=== PATIENT | male | born 1995 | race Caucasian/White ===

== ENCOUNTER 2019-04-15 14:23 | Emergency (ER) | payer MEDICAID, SELFPAY ==
[2019-04-15 14:48] VITALS: BP 140/80; PULSE 97; RESP 18; TEMP 36.9; O2SAT 94; BMI 45.0
--- NOTE | 2019-04-15 15:05 | USCV_ITS ---
[facility] Age: 24 Gender: M : 1995 Exam Date: 04/15/2019 16:05 Ordering Phys: Padmini Salinas Technologist: Karina Hein Exam Location: [facility] – [place] Indication: PAIN SWELLING PROCEDURES: Venous duplex imaging was performed in only the right lower extremity. The following venous structures were evaluated: common femoral vein, profunda vein, proximal portion of the greater saphenous vein, superficial femoral vein, and the popliteal vein. In addition, the posterior tibial and peroneal trunk were evaluated. Serial compression, augmentation maneuvers, and spectral Doppler flow evaluation were performed. FINDINGS: Normal 2-D Doppler and augmentation and compressibility throughout the lower extremity venous structures. Additional imaging through the proximal calf veins also reveals no thrombus. Limited evaluation of the greater saphenous vein is patent with no thrombus.. CONCLUSIONS No evidence of right lower extremity DVT. Cyrus Gardner MD (Electronically Signed) Final Date: 15 April 2019 16:33 S
--- NOTE | 2019-04-15 17:55 | ED_ITS ---
HPI - Extremity Problem General: Chief complaint: Extremity Problem,Nontraumatic Stated complaint: possible clot in right leg Time Seen by Provider: 04/15/19 17:50 History of Present Illness: HPI Narrative: Patient presents with right lower extremity swelling times years redness since yesterday. Patient has no other complaints MD Complaint: extremity swelling Onset (ago): day(s) Pain Consistency: constant Location: right and lower extremity Quality: dull Radiation: none Associated symptoms: Deny chest pain, fever(s) or rash Context: history of DVT Review of Systems General: Reports: 10 or more systems reviewed and unremarkable except in HPI and below (Right lower extremity swelling. Redness since yesterday. Patient does have lymphedema.) Const: Denies: fever, chills or body aches Eyes: Denies: change in vision or blurry vision ENMT: Denies: throat pain or nasal congestion Card: Denies: chest pain or shortness of breath on exertion Resp: Denies: shortness of breath, productive cough or non-productive cough GI: Denies: abdominal pain, nausea or vomiting : Denies: difficulty urinating Musc: Denies: extremity pain Skin/Breast: Denies: rash Neuro: Denies: headache Psych: Denies: anxiety or depression Lambert/Lymph: Denies: easy bruising PFSH ED PFSH: Statuses (acute, chronic, etc) shown below reflect problem list status as previously entered and may not be historically accurate Medical History (Updated 04/15/19 @ 18:38 by STEPHIE Ngo) Deep vein thrombophlebitis of right leg (Acute) Diabetes (Acute) Obesity (Acute) Venous insufficiency of both lower extremities (Acute) Social History (Updated 04/15/19 @ 11:07 by STEPHIE Hastings) Smoking and tobacco status: never smoked Second hand smoke exposure: Yes Alcohol intake: never Adopted: No Lives independently: No Highest education level completed: High School Graduate Additional social history: Lives with Mother and Father he does chew tobacco Physical Exam Const: COMMON NORMALS: no apparent distress, average body habitus and oriented x3 HENMT: COMMON NORMALS: normocephalic HEAD & SCALP: normal to inspection and normocephalic FACE & SINUS: normal facial exam Eye: COMMON NORMALS: conjunctivae normal GENERAL EYE: normal appearance of both eyes CONJUNCTIVA: Yes conjunctivae normal Neck/C-Spine: COMMON NORMALS: no JVD Chest: COMMONS NORMALS: inspection of chest normal Resp: COMMON NORMALS: normal respiratory effort and clear to auscultation bilaterally AUSCULTATION: clear to auscultation bilaterally Cardio: COMMON NORMALS: no JVD, regular rate and regular rhythm RATE: regular rate RHYTHM: regular rhythm GI: COMMON NORMALS: normal to inspection, nondistended, normoactive bowel sounds Extremity: COMMON NORMALS: normal to inspection and full ROM RIGHT LOWER EXTREMITY: Yes lower leg (Swelling of the right lower extremity below knee. Open sores that are draining. Erythema to the foot and ankle area. Warm to the touch but not hot. Has full range of motion.) Neuro: COMMON NORMALS: oriented x3 Course Vital Signs: Vital signs: Vital Signs Temperature 98.5 F 04/15/19 14:48 Pulse Rate 79 04/15/19 18:23 Respiratory Rate 18 04/15/19 14:48 Blood Pressure 128/68 04/15/19 18:23 Pulse Oximetry 95 04/15/19 18:23 MDM - Extremity (Nontraumatic) Lab Data: Labs: Lab Results 04/15/19 Range/Units 18:07 WBC 10.6 H (4.0-10.0) 10^3/ uL RBC 4.78 (4.1-5.3) 10^6/u L Hgb 11.6 L (11.7-16.6) g/dL Hct 38.7 L (42.0-52.0) % MCV 81.0 (80-94) fL MCH 24.3 L (28.0-34.0) pg MCHC 30.0 (30.0-36.0) g/dL RDW 15.8 H (12.1-15.1) % Plt Count 293 (130-400) 10^3/c mm MPV 9.0 (7.4-10.4) fL Neut % (Auto) 70.6 % Lymph % (Auto) 22.9 % [place] % (Auto) 3.9 % Eos % (Auto) 1.8 % Baso % (Auto) 0.3 % Neut # (Auto) 7.5 (1.8-7.7) 10^3/u L Lymph # (Auto) 2.4 (0.8-4.8) 10^3/u L [place] # (Auto) 0.4 (0.2-0.9) 10^3/u L Eos # (Auto) 0.2 (0.0-0.8) 10^3/u L Baso # (Auto) 0.0 (0.0-0.1) 10^3/u L Nucleated RBC % (a uto) 0 % Nucleated RBCs # 0.0 /100WBC Discharge Plan Discharge Clinical Impression: Wound cellulitis Condition: Stable Prescriptions: No Action Lantus Solostar U-100 Insulin 100 unit/mL (3 mL) insulin pen 40 unit SUBCUT ONCE RF: 0 Novolog Flexpen U-100 Insulin 100 unit/mL (3 mL) insulin pen 20 unit SUBCUT TID RF: 0 warfarin 5 mg tablet 5 mg PO ONCE RF: 0 warfarin 1 mg tablet 1 mg PO ONCE RF: 0 Referrals: Nicole Hernandez FNP [Primary Care Provider] - Discharge Diet: Usual diet Discharge Activity: Increase activity as tolerated Patient Instructions: Cellulitis (ED) Activity Restrictions/Additional Instructions: Follow-up with medical provider as directed. Take medications as prescribed. Return to the ER are your medical provider if condition worsens. Read and understand discharge instructions. Coding Level of Care Code ED Forging Press Setter Up for Milly Carl Exam Problem Focused
[2019-04-15 18:18] LABS: Basophils % 0.3 %; Eosinophils # 0.2 10^3/uL (0.0-0.8); Eosinophils % 1.8 %; Hematocrit 38.7 % (42.0-52.0); Hemoglobin 11.6 g/dL (11.7-16.6); Lymphocytes # 2.4 10^3/uL (0.8-4.8); Lymphocytes % 22.9 %; Mean Corpuscular Hemoglobin 24.3 pg (28.0-34.0); Monocytes # 0.4 10^3/uL (0.2-0.9); Monocytes % 3.9 %; Neutrophils # 7.5 10^3/uL (1.8-7.7); Neutrophils % 70.6 %; Nucleated Red Blood Cells % 0 %; Platelet Count 293 10^3/cmm (130-400); Red Blood Count 4.78 10^6/uL (4.1-5.3); Red Cell Distribution Width 15.8 % (12.1-15.1); White Blood Count 10.6 10^3/uL (4.0-10.0)
[2019-04-15 18:23] VITALS: BP 128/68; PULSE 79; O2SAT 95
[2019-04-15 18:40] LABS: Alanine Aminotransferase 33 U/L (0-41); Albumin Level 3.3 g/dL (3.5-5.2); Alkaline Phosphatase 59 IU/L (40-130); Anion Gap 12.9 (5-19); Aspartate Amino Transferase 31 U/L (0-40); Blood Urea Nitrogen 10 mg/dL (6-20); Calcium 9.4 mg/Dl (8.6-10.0); Carbon Dioxide 28 mmol/L (22-29); Chloride 98 mmol/L (98-107); Globulin 4.3 g/dL (1.3-4.6); Glomerular Filtration Rate 137.4 mL/min (90-130); Glucose 172 mg/dL (74-109); Potassium 3.9 mmol/L (3.5-5.1); Sodium 135 mmol/L (136-145); Total Bilirubin 0.3 mg/dL (0.15-1.2); Total Protein 7.6 g/dL (6.6-8.7)
[2019-04-15 18:53] LABS: Estmated Average Glucose 143; Hemoglobin A1C 6.6 % (4.0-6.0)
[2019-04-15] MEDS: levoFLOXacin 500 mg Tablet PO (19:20)
[2019-04-15 19:21] VITALS: BP 130/82; PULSE 81; RESP 16; O2SAT 96
--- NOTE | 2019-04-15 19:25 | PC.NURSE ---
REPORT RECEIVED FROM JASMIN TAPIA AND CARE TRANSFERRED TO JASMIN CHAMPION
--- NOTE | 2019-04-15 19:58 | PC.NURSE ---
PATIENT REQUESTED UPDATE ON STATUS, PATIENT INFORMED ON PLAN OF CARE BY RN
[2019-04-15 20:21] VITALS: BP 138/79; PULSE 72; RESP 16; TEMP 36.9; O2SAT 98
== END 2019-04-15 20:26 | disposition home or self-care (01) ==
PROVIDERS: Emergency Provider Nurse Practitioner Family; Family Provider Nurse Practitioner; PCP Nurse Practitioner
DX: L03.115 Cellulitis of right lower limb (principal); Z79.01 Long term (current) use of anticoagulants; Z79.4 Long term (current) use of insulin; E11.9 Type 2 diabetes mellitus without complications; Z86.718 Personal history of other venous thrombosis and embolism
CPT/HCPCS: 36415; 80053; 83036; 85025; 87040; 93971; 99281

== ENCOUNTER 2019-05-06 14:44 | Outpatient (RCR) | payer MEDICAID, SELFPAY | END 2019-05-08 23:59 | disposition home or self-care (01) | LOC: WOUND 14:44 | PROVIDERS: Family Provider Nurse Practitioner; PCP Nurse Practitioner; Visit Provider Nurse Practitioner Family | DX: I87.2 Venous insufficiency (chronic) (peripheral) (principal); L97.812 Non-pressure chronic ulcer of other part of right lower leg with fat layer exposed | CPT/HCPCS: 29581; 99212; 99214; A6545; G0463 ==

== ENCOUNTER → 2019-05-14 09:10 | Outpatient (BNVA) | payer MEDICAID, SELFPAY | PROVIDERS: Family Provider Nurse Practitioner; PCP Nurse Practitioner; Referring Provider Nurse Practitioner; Visit Provider Nurse Practitioner | DX: I82.409 Acute embolism and thrombosis of unspecified deep veins of unspecified lower extremity (principal); Z79.01 Long term (current) use of anticoagulants; I87.2 Venous insufficiency (chronic) (peripheral) | CPT/HCPCS: 85610 ==

== ENCOUNTER → 2019-06-22 09:28 | Outpatient (BNVA) | payer MEDICAID, SELFPAY | PROVIDERS: Family Provider Nurse Practitioner; PCP Nurse Practitioner; Visit Provider Nurse Practitioner | DX: Z79.01 Long term (current) use of anticoagulants (principal) | CPT/HCPCS: 85610 ==

== ENCOUNTER → 2019-12-01 16:23 | Outpatient (BNVA) | payer MEDICAID, SELFPAY | PROVIDERS: Family Provider Nurse Practitioner; PCP Nurse Practitioner; Visit Provider Nurse Practitioner Family | DX: I82.409 Acute embolism and thrombosis of unspecified deep veins of unspecified lower extremity (principal); I87.2 Venous insufficiency (chronic) (peripheral); Z76.89 Persons encountering health services in other specified circumstances; L03.90 Cellulitis, unspecified | CPT/HCPCS: 85610 ==

== ENCOUNTER 2019-12-02 07:59 | Outpatient (CLI) | payer MEDICAID, SELFPAY | END 2019-12-02 08:00 | disposition home or self-care (01) | LOC: WOUND 08:00 | PROVIDERS: Family Provider Nurse Practitioner; PCP Nurse Practitioner; Visit Provider Emergency Medicine | DX: E11.622 Type 2 diabetes mellitus with other skin ulcer (principal); L97.822 Non-pressure chronic ulcer of other part of left lower leg with fat layer exposed | CPT/HCPCS: 11042; 87070; 87077; 87176; 87186; 87205; G0463 ==

== ENCOUNTER 2019-12-03 13:13 | Outpatient (CLI) | payer MEDICAID, SELFPAY ==
--- NOTE | 2019-12-03 13:18 | USCV_ITS ---
[facility] Age: 24 Gender: M : 1995 Exam Date: 12/03/2019 13:12 Ordering Phys: Annemarie Ag DO Technologist: Isela Anglin Exam Location: [facility] – [place], [place] Indication: HISTORY: Lower extremity edema. PROCEDURES: Bilateral duplex Venous Insufficiency study of the Deep and Superficial systems was carried out according to normal protocol with the patient in supine positon for deep system and dependent position for the superficial system. FINDINGS: No notable reflux was seen at this time. There is no evidence of bilateral deep vein thrombosis. No evidence of superficial thrombosis in the bilateral saphenous system. Echolucent areas are noted in the cutaneous tissue bilaterally, more so on the right side CONCLUSIONS No evidence of DVT in the above-mentioned identifiable veins. No significant venous reflux were noted. Features of fluid retention/edema, bilaterally, more so on the right side. The venous dimensions and the depth from the surface are as mentioned above Dr Richard Carroll MD [facility] (Electronically Signed) Final Date: 03 December 2019 20:33 S
== END 2019-12-03 13:14 | disposition home or self-care (01) ==
LOC: RAD 13:14
PROVIDERS: PCP Nurse Practitioner; Visit Provider Emergency Medicine
DX: M79.604 Pain in right leg (principal); M79.605 Pain in left leg; L53.9 Erythematous condition, unspecified; L97.929 Non-pressure chronic ulcer of unspecified part of left lower leg with unspecified severity; L97.919 Non-pressure chronic ulcer of unspecified part of right lower leg with unspecified severity; M79.89 Other specified soft tissue disorders
CPT/HCPCS: 93970

== ENCOUNTER 2019-12-04 14:07 | Outpatient (CLI) | payer MEDICAID, SELFPAY ==
--- NOTE | 2019-12-04 14:13 | USCV_ITS ---
[facility] Age: 24 Gender: M : 1995 Exam Date: 12/04/2019 14:05 Ordering Phys: Annemarie Ag DO Technologist: Exam Location: [facility] – [place]_ Indication: PAIN, REDNESS, NONHEALING ULCER RIGHT LEFT Brachial 143.00 mmHg Brachial 126.00 mmHg Pressure (mmHg) Waveform Pressure (mmHg) Waveform 167.00 Below Knee 148.00 182.00 BUT[place] SAWYER 162.00 114.00 DPA 148.00 1.27 Ankle/Brachial Index 1.13 150.00 Pre-Exercise Toe Pressure 166.00 1.05 Pre-Exercise Toe/Brachial Index 1.16 FINDINGS Normal resting ROMINA bilaterally Normal resting TBIs bilaterally CONCLUSIONS No significant arterial obstruction, based on the above findings Dr Richard Carroll MD [facility] (Electronically Signed) Final Date: 06 December 2019 09:55 S
== END 2019-12-04 14:08 | disposition home or self-care (01) ==
LOC: RAD 14:09
PROVIDERS: PCP Hospitalist; Visit Provider Emergency Medicine
DX: M79.604 Pain in right leg (principal); M79.605 Pain in left leg; L53.9 Erythematous condition, unspecified; L97.829 Non-pressure chronic ulcer of other part of left lower leg with unspecified severity; L97.819 Non-pressure chronic ulcer of other part of right lower leg with unspecified severity
CPT/HCPCS: 93923

== ENCOUNTER 2019-12-09 08:52 | Outpatient (CLI) | payer MEDICAID, SELFPAY | END 2019-12-09 08:53 | disposition home or self-care (01) | LOC: WOUND 08:52 | PROVIDERS: PCP Hospitalist; Visit Provider Emergency Medicine | DX: E11.622 Type 2 diabetes mellitus with other skin ulcer (principal); L97.822 Non-pressure chronic ulcer of other part of left lower leg with fat layer exposed | CPT/HCPCS: 11042 ==

== ENCOUNTER 2019-12-11 11:03 | Outpatient (CLI) | payer MEDICAID, SELFPAY | END 2019-12-11 11:04 | disposition home or self-care (01) | LOC: WOUND 11:04 | PROVIDERS: PCP Hospitalist; Visit Provider Surgery | DX: I89.0 Lymphedema, not elsewhere classified (principal); I87.2 Venous insufficiency (chronic) (peripheral); L97.822 Non-pressure chronic ulcer of other part of left lower leg with fat layer exposed | CPT/HCPCS: 29580; 29581 ==

== ENCOUNTER 2019-12-16 08:39 | Outpatient (CLI) | payer MEDICAID, SELFPAY | END 2019-12-16 08:40 | disposition home or self-care (01) | LOC: WOUND 08:39 | PROVIDERS: PCP Hospitalist; Visit Provider Emergency Medicine | DX: Z09 Encounter for follow-up examination after completed treatment for conditions other than malignant neoplasm (principal) | CPT/HCPCS: A6545 ==

== ENCOUNTER 2019-12-23 09:02 | Outpatient (CLI) | payer MEDICAID, SELFPAY | END 2019-12-23 09:03 | disposition home or self-care (01) | LOC: WOUND 09:03 | PROVIDERS: PCP Hospitalist; Visit Provider Emergency Medicine | DX: I89.0 Lymphedema, not elsewhere classified (principal) | CPT/HCPCS: G0463 ==

== ENCOUNTER 2020-01-06 08:48 | Outpatient (CLI) | payer MEDICAID, SELFPAY | END 2020-01-06 08:49 | disposition home or self-care (01) | LOC: WOUND 08:48 | PROVIDERS: PCP Family Medicine Adult Medicine; Visit Provider Nurse Practitioner Family | DX: I89.0 Lymphedema, not elsewhere classified (principal) | CPT/HCPCS: 99212 ==

== ENCOUNTER → 2020-02-03 14:00 | Outpatient (BNVA) | payer MEDICAID, SELFPAY | PROVIDERS: Visit Provider Family Medicine Adult Medicine | DX: I73.9 Peripheral vascular disease, unspecified (principal); Z86.711 Personal history of pulmonary embolism | CPT/HCPCS: 85610 ==

== ENCOUNTER → 2020-02-18 11:54 | Outpatient (BNVA) | payer MEDICAID, SELFPAY | PROVIDERS: Visit Provider Family Medicine Adult Medicine | DX: I73.9 Peripheral vascular disease, unspecified (principal); E11.9 Type 2 diabetes mellitus without complications; E66.01 Morbid (severe) obesity due to excess calories; Z68.42 Body mass index [BMI] 45.0-49.9, adult; Z86.711 Personal history of pulmonary embolism | CPT/HCPCS: 80053; 80061; 83036; 83721; 85025; 85610 ==